=== PATIENT | female | born 1925 | race Caucasian/White ===

== ENCOUNTER 2017-03-03 18:48 | Emergency (ER) | payer MEDICARE, OTHER ==
[2017-03-03 19:04] VITALS: BP 155/100; TEMP 98.2; O2SAT 97
[2017-03-03] MEDS ORDERED: BUPIVACAINE 0.5% 30 ML VIAL INJ ONE (19:16)
[2017-03-03] MEDS ORDERED: methylPREDNISolone ACETATE 40 MG/ML VIAL ONE (19:17)
--- NOTE | 2017-03-03 19:19 | ED.PDOC ---
History of Present Illness - General Chief Complaint: Upper Extremity Injury Stated Complaint: Left shoulder pain Time Seen by Provider: 03/03/17 19:17 Source: patient Exam Limitations: no limitations - History of Present Illness Timing/Duration: 24 hours, constant Improving Factors: immobilization Worsening Factors: movement Associated Symptoms: denies symptoms Allergies/Adverse Reactions: Allergies Acetaminophen [From Darvocet-N] Allergy (Verified 03/16/16 16:32) Diclofenac Allergy (Verified 03/16/16 16:32) Hydrocodone Allergy (Verified 03/16/16 09:53) Vomitting Propoxyphene [From Darvocet-N] Allergy (Verified 03/16/16 16:32) Sulfa Antibiotics Allergy (Verified 03/16/16 16:32) Home Medications: Ambulatory Orders RX: Amoxicillin [Amoxil] 500 mg PO Q8H 03/16/16 RX: Polyethylene Glycol 3350 [Miralax] 17 gm PO DAILY 03/16/16 RX: Tramadol HCl [Ultram] 50 mg PO Q4H PRN 03/16/16 Aspirin [Baby Aspirin] 81 mg PO QD #100 tab 03/17/16 RX: Lisinopril [Prinivil] 2.5 mg PO DAILY #30 tab 03/17/16 Acetamin W/Cod #3 Tab [Tylenol w/CODEINE #3] 1 ea PO Q6HR PRN #40 tab 03/03/17 Review of Systems - Review of Systems Constitutional: States: no symptoms reported EENTM: States: no symptoms reported Respiratory: States: no symptoms reported Cardiology: States: no symptoms reported Gastrointestinal/Abdominal: States: no symptoms reported Genitourinary: States: no symptoms reported Musculoskeletal: States: no symptoms reported, see HPI Skin: States: no symptoms reported Neurological: States: no symptoms reported Hematologic/Lymphatic: States: no symptoms reported Past Medical History (General) - Patient Medical History Hx Seizures: No Hx Stroke: No Hx Dementia: No Hx Asthma: No Hx of COPD: No Hx Cardiac Disorders: Yes - [place] Hx Congestive Heart Failure: Yes - murmur,CAD Hx Pacemaker: No Hx Hypertension: No Hx Thyroid Disease: Yes Hx Diabetes: No Hx Gastroesophageal Reflux: No Hx Renal Disease: No Hx Cancer: No Hx of HIV: No Hx Hepatitis C: No Hx MRSA: No Surgical History: angioplasty - Vaccination History Hx Tetanus, Diphtheria Vaccination: No Hx Influenza Vaccination: No Hx Pneumococcal Vaccination: Yes Immunizations Up to Date: Yes - Social History Hx Tobacco Use: No Hx Alcohol Use: No Hx Substance Use: No Hx Physical Abuse: No Hx Emotional Abuse: No - Activities of Daily Living Hospice Agency (if applicable):: None - Female History Patient is a Female of Child Bearing Age (10 -59 yrs old): No Family Medical History - Family History Mother Living Status: Hx Cardiac Disease: Yes - [place] Hx Family Cancer: Yes - breast Hx Family;Other: Arthritis Physical Exam - Physical Exam General Appearance: Alert, Well Developed, Well Groomed, Well Hydrated Eye Exam: bilateral normal Ears, Nose, Throat: hearing grossly normal, normal ENT inspection, normal pharynx Neck: non-tender, full range of motion, supple Respiratory: chest non-tender, lungs clear, normal breath sounds, no respiratory distress, no accessory muscle use Cardiovascular/Chest: normal peripheral pulses, regular rate, rhythm, no edema, no gallop, no JVD Gastrointestinal/Abdominal: normal bowel sounds, non tender, soft Extremity: other - LEFT SHOULDER EXAM THERE IS MILD JOINT EFFUSION TENDER ON ANTERIOR JOINT LINE NO NEUROVASCULAR DEFICIT 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 Copy, Patient Portal Self Enrollment Instructions: DI for Arm Pain Activity: walking as tolerated Referrals: Michael Agosto MD [Primary Care Provider] - 1-2 Weeks Prescriptions: Acetamin W/Cod #3 Tab [Tylenol w/CODEINE #3] 1 ea PO Q6HR PRN #40 tab PRN Reason: Mild To Moderate Pain Home Medications: Ambulatory Orders RX: Amoxicillin [Amoxil] 500 mg PO Q8H 03/16/16 RX: Polyethylene Glycol 3350 [Miralax] 17 gm PO DAILY 03/16/16 RX: Tramadol HCl [Ultram] 50 mg PO Q4H PRN 03/16/16 Aspirin [Baby Aspirin] 81 mg PO QD #100 tab 03/17/16 RX: Lisinopril [Prinivil] 2.5 mg PO DAILY #30 tab 03/17/16 Acetamin W/Cod #3 Tab [Tylenol w/CODEINE #3] 1 ea PO Q6HR PRN #40 tab 03/03/17 Additional Instructions: FOLLOW UP WITH ORTHOPEDICS
--- NOTE | 2017-03-03 20:07 | RAD ---
EXAM DESCRIPTION: Shoulder,Left 2 or More Views CLINICAL HISTORY: 89 years Female PAIN COMPARISON: None. TECHNIQUE: LEFT SHOULDER two view FINDINGS: There are severe erosive changes involving the glenohumeral joint with destruction of the majority of the humeral head and the normal glenoid. Moderate degenerative change at the acromioclavicular joint. IMPRESSION: Severe chronic erosive changes involving the humeral head and the glenoid Electronically signed by: Zonia Hollis 03/03/2017 8:06 PM [facility]
--- NOTE | 2017-03-03 20:25 | RAD ---
EXAM DESCRIPTION: Shoulder, right 2 or More Views CLINICAL HISTORY: 89 years Female pain COMPARISON: None. TECHNIQUE: Two views of the right shoulder. FINDINGS: There are marked degenerative changes involving the glenohumeral joint. There are degenerative changes of the acromioclavicular joint. There are well-corticated osseous densities adjacent to the shoulder joint which are likely chronic. There is marked narrowing of the acromiohumeral distance consistent with shoulder impingement syndrome. No definite acute fracture. IMPRESSION: Marked degenerative changes involving the right shoulder with changes consistent with shoulder impingement syndrome. Electronically signed by: Lino Hollis MD 03/03/2017 8:23 PM [facility]
== END 2017-03-03 20:28 | disposition home or self-care (01) ==
LOC: ER 18:48
DX: M87.822 Other osteonecrosis, left humerus (principal); I25.2 Old myocardial infarction; I25.10 Atherosclerotic heart disease of native coronary artery without angina pectoris; E07.9 Disorder of thyroid, unspecified; Z98.61 Coronary angioplasty status